=== PATIENT | female | born 1975 | race Caucasian/White ===

== ENCOUNTER 2017-08-26 07:16 | Inpatient (IN) ==
[2017-08-26] MEDS ORDERED: 0.9 % Sodium Chloride 1,000 ML IVC ONE (07:41)
[2017-08-26] MEDS ORDERED: Ondansetron 4 MG/2 ML VIAL IVP ONE (07:41)
[2017-08-26] MEDS ORDERED: *HR* Morphine 2 MG/ML SYRINGE IVP ONE (07:41)
--- NOTE | 2017-08-26 08:07 | Emergency Department Note ---
Disposition Clinical Impression: Diverticulitis Qualifiers: Diverticulitis site: large intestine Diverticulitis bleeding: without bleeding Diverticulitis complication: without perforation or abscess Qualified Code(s): K57.32 - Diverticulitis of large intestine without perforation or abscess without bleeding Disposition: Admitted As Inpatient Condition: Fair Referrals: Brittany Mendez CNP [Primary Care Provider] - Forms: ED Satisfaction Letter, Work/School Release Abdominal Pain HPI - General Chief Complaint: ED Abdominal Pain Stated Complaint: abd, N/V/D Time Seen by Provider: 08/26/17 07:24 Source: patient Mode of arrival: private vehicle Limitations: no limitations Nursing Notes Reviewed: Yes Vital Signs Reviewed: Yes - History of Present Illness Pt Subjective Complaint: abdominal pain Onset (ago): day(s) (3) Consistency: constant, Worsening Location: LLQ Pain Severity: moderate Pain Scale: 5 Quality: stabbing, sharp Radiation: none Migration to: no migration Improves with: nothing Worsens with: nothing Context: history of similar episodes ("feels like diverticulitis again" per patient) Associated symptoms: Reports: nausea, vomiting, chills. Denies: diarrhea, fever , constipation, dysuria, hematemesis, hematochezia, melena, hematuria, anorexia , syncope Treatments prior to arrival: other (has tried bland diet then liquid diet x past 2.5 days.) - Related Data Home Medications Medication Instructions Recorded Confirmed Ibuprofen [Motrin] 200 mg PO Q4HR 07/23/15 07/23/15 SUMAtriptan Succinate [Imitrex] 100 mg PO AD PRN 07/23/15 07/23/15 Previous Rx's Medication Instructions Recorded Ciprofloxacin [Cipro] 500 mg PO BID #20 tablet 07/30/15 Ondansetron ODT [Zofran ODT] 4 mg SL Q4HR PRN #30 tab.rapdis 07/30/15 TraMADol [Ultram] 50 mg PO Q6HR PRN #30 tablet 07/30/15 metroNIDAZOLE [Flagyl] 500 mg PO TID #30 tablet 07/30/15 Allergies Allergy/AdvReac Type Severity Reaction Status Date / Time sulfamethoxazole Allergy Hives Verified 08/26/17 07:47 [From Bactrim] trimethoprim [From Bactrim] Allergy Hives Verified 08/26/17 07:47 All systems ED: reviewed and negative except as stated. Review of Systems: As Per HPI Constitutional: Reports: chills. Denies: fever, weakness, weight change, night sweats Cardiovascular: Denies: chest pain, palpitations, dyspnea on exertion Respiratory: Denies: cough, dyspnea, wheezes, hemoptysis Gastrointestinal: Reports: as per HPI, abdominal pain, nausea, vomiting. Denies : diarrhea, constipation, hematemesis, melena, hematochezia, other Genitourinary: Denies: urgency, dysuria, frequency, hematuria Integumentary: Denies: rash Neurological: Denies: headache, weakness, confusion, vertigo Hematological/Lymphatic: Denies: easy bleeding, easy bruising Abdominal Pain PMH - Past Medical History Medical history: Reports: other Reports: diverticulosis, diverticulitis (Dx 2 yrs ago) Female Surgical History: Reports: LEASE EXAMINER history: Reports: no LEASE EXAMINER history Psychiatric history: Reports: no psych history - Social History Smoking status: Never smoker Alcohol use: Reports: rarely Drug use: Reports: none Physical Exam - General Limitations: no limitations General appearance: alert, in no apparent distress - Head Head exam: atraumatic, normocephalic, normal inspection - Eye Eye exam: Present: normal appearance, PERRL. Absent: scleral icterus, conjunctival injection, periorbital swelling - ENT ENT exam: mucous membranes dry - Neck Neck exam: Present: normal inspection, full ROM, trachea midline. Absent: meningismus - Chest Chest inspection: Present: normal inspection - Respiratory Respiratory exam: Present: normal lung sounds bilaterally. Absent: respiratory distress - Cardiovascular Cardiovascular exam: Present: regular rate, normal rhythm, normal heart sounds - Abdominal Exam Abdominal exam: Present: soft, tenderness, normal bowel sounds. Absent: distention, guarding, rebound, rigidity, mass, pulsatile mass Abdominal tenderness: Present: LLQ, moderate - Extremities Exam Extremities exam: Present: normal inspection. Absent: pedal edema - Expanded Lower Extremity Exam Gait: observed and normal - Back Exam Back exam: Present: normal inspection - Neurological Exam Neurological exam: Present: alert, oriented X3, CN II-XII intact, normal gait - Psychiatric Psychiatric exam: Present: normal affect, normal mood - Skin Skin exam: Present: warm, dry, intact, normal color Course Course Narrative: 42 yr old female presents for evaluation of LLQ abdominal pain x 3 days. She has hx of diverticulitis - dx'd [address] with F/U scope. She has had a couple episodes of similar pain which resolved when she switched to a liquid or bland diet. This time she has had no relief with such measures. She appears uncomfortable but not toxic. Vitals are normal. Labs, fluids, pain and nausea meds and CT have been ordered. Case was discussed with Dr. Hawkins. He has had face to face time with the patient and agrees with the assessment and plan. - Reevaluation(s) Reevaluation #1: pain and nausea have returned. Additional meds ordered. CT shows stranding in LLQ and WBC count is elevated. Abx ordered. Time: 09:36 Vital Signs Temperature 98.1 F 08/26/17 07:16 Pulse Rate 88 08/26/17 07:16 Respiratory Rate 18 08/26/17 07:16 Blood Pressure 133/89 08/26/17 07:16 O2 Sat by Pulse Oximetry 98 08/26/17 07:16 Temperature 98.1 F 08/26/17 07:16 Pulse Rate 82 08/26/17 09:19 Respiratory Rate 20 08/26/17 09:19 Blood Pressure 133/77 08/26/17 09:19 O2 Sat by Pulse Oximetry 97 08/26/17 09:19 Oxygen Delivery Oxygen Delivery Room Air Abdominal Pain - Medical Records Medical records reviewed: Yes I reviewed the patient's medical records. - Lab Data Lab results reviewed: Yes I reviewed the patient's lab results. Lab results narrative: Laboratory Last Values WBC 15.6 K/mcL (4.3-11.1) H 08/26/17 07:46 RBC 4.65 M/mcL (3.82-4.97) 08/26/17 07:46 Hgb 14.1 g/dL (11.5-15.4) 08/26/17 07:46 Hct 41.4 % (35.3-44.9) 08/26/17 07:46 MCV 89.0 fL (83.0-100.0) 08/26/17 07:46 MCH 30.3 pg (28.0-33.3) 08/26/17 07:46 MCHC 34.1 g/dL (31.6-35.5) 08/26/17 07:46 RDW 12.4 % (11.5-14.5) 08/26/17 07:46 Plt Count 285 K/mcL (140-400) 08/26/17 07:46 MPV 10.3 fL (9.4-12.4) 08/26/17 07:46 Immature Gran % 0.3 % (0-4) 08/26/17 07:46 Seg Neutrophils % 80.0 % 08/26/17 07:46 Lymphocytes % 12.5 % 08/26/17 07:46 Monocytes % 6.5 % 08/26/17 07:46 Eosinophils % 0.3 % 08/26/17 07:46 Basophils % 0.4 % 08/26/17 07:46 Neutrophils # 12.4 K/mcL (1.6-8.9) H 08/26/17 07:46 Lymphocytes # 2.0 K/mcL (0.6-4.6) 08/26/17 07:46 Monocytes # 1.0 K/mcL (0.0-1.3) 08/26/17 07:46 Eosinophils # 0.0 K/mcL (0.0-0.6) 08/26/17 07:46 Basophils # 0.1 K/mcL (0.0-0.2) 08/26/17 07:46 Sodium 133 mEq/L (136-145) L 08/26/17 07:46 Potassium 4.2 mEq/L (3.5-4.5) 08/26/17 07:46 Chloride 103 mEq/L (98-109) 08/26/17 07:46 Carbon Dioxide 24 mEq/L (19-29) 08/26/17 07:46 BUN 10 mg/dL (7-20) 08/26/17 07:46 Creatinine 1.00 mg/dL (0.57-1.11) 08/26/17 07:46 Est GFR ( Amer) > 60 (> 60) 08/26/17 07:46 Est GFR (Non-Af Amer) > 60 (> 60) 08/26/17 07:46 BUN/Creatinine Ratio 10 (6-26) 08/26/17 07:46 Glucose 115 mg/dL (70-99) H 08/26/17 07:46 Calculated Osmolality 276 (280-300) L 08/26/17 07:46 Calcium 9.2 mg/dL (8.6-10.8) 08/26/17 07:46 Urine Color Yellow (Yellow) 08/26/17 07:24 Urine Clarity Clear (Clear) 08/26/17 07:24 Urine pH 6.0 pH Units (5.0-8.0) 08/26/17 07:24 Ur Specific [place] 1.021 (1.010-1.025) 08/26/17 07:24 Urine Protein Negative mg/dL (Neg-Trace) 08/26/17 07:24 Urine Glucose (UA) Normal mg/dL (Normal) 08/26/17 07:24 Urine Ketones Negative mg/dL (Negative) 08/26/17 07:24 Urine Blood Negative (Negative) 08/26/17 07:24 Urine Nitrite Negative (Negative) 08/26/17 07:24 Urine Bilirubin Negative (Negative) 08/26/17 07:24 Urine Urobilinogen Normal mg/dL (Normal) 08/26/17 07:24 Ur Leukocyte Esterase Negative (Negative) 08/26/17 07:24 Ur Culture Indicated? NO (NO) 08/26/17 07:24 Urine Test Negative (Negative) 08/26/17 07:24 Result diagrams: 08/26/17 07:46 08/26/17 07:46 Lab Results 08/26/17 08/26/17 08/26/17 Range/Units 07:24 07:24 07:46 WBC 15.6 H (4.3-11.1) K/mcL RBC 4.65 (3.82-4.97) M/mcL Hgb 14.1 (11.5-15.4) g/dL Hct 41.4 (35.3-44.9) % MCV 89.0 (83.0-100.0) fL MCH 30.3 (28.0-33.3) pg MCHC 34.1 (31.6-35.5) g/dL RDW 12.4 (11.5-14.5) % Plt Count 285 (140-400) K/mcL MPV 10.3 (9.4-12.4) fL Immature Gran % 0.3 (0-4) % Seg Neutrophils % 80.0 % Lymphocytes % 12.5 % Monocytes % 6.5 % Eosinophils % 0.3 % Basophils % 0.4 % Neutrophils # 12.4 H (1.6-8.9) K/mcL Lymphocytes # 2.0 (0.6-4.6) K/mcL Monocytes # 1.0 (0.0-1.3) K/mcL Eosinophils # 0.0 (0.0-0.6) K/mcL Basophils # 0.1 (0.0-0.2) K/mcL Sodium (136-145) mEq/L Potassium (3.5-4.5) mEq/L Chloride (98-109) mEq/L Carbon Dioxide (19-29) mEq/L BUN (7-20) mg/dL Creatinine (0.57-1.11) mg/dL Est GFR ( Amer) (> 60) Est GFR (Non-Af Amer) (> 60) BUN/Creatinine Ratio (6-26) Glucose (70-99) mg/dL Calculated Osmolality (280-300) Calcium (8.6-10.8) mg/dL Urine Color Yellow (Yellow) Urine Clarity Clear (Clear) Urine pH 6.0 (5.0-8.0) pH Units Ur Specific [place] 1.021 (1.010-1.025) Urine Protein Negative (Neg-Trace) mg/dL Urine Glucose (UA) Normal (Normal) mg/dL Urine Ketones Negative (Negative) mg/dL Urine Blood Negative (Negative) Urine Nitrite Negative (Negative) Urine Bilirubin Negative (Negative) Urine Urobilinogen Normal (Normal) mg/dL Ur Leukocyte Esterase Negative (Negative) Ur Culture Indicated? NO (NO) Urine Test Negative (Negative) 08/26/17 Range/Units 07:46 WBC (4.3-11.1) K/mcL RBC (3.82-4.97) M/mcL Hgb (11.5-15.4) g/dL Hct (35.3-44.9) % MCV (83.0-100.0) fL MCH (28.0-33.3) pg MCHC (31.6-35.5) g/dL RDW (11.5-14.5) % Plt Count (140-400) K/mcL MPV (9.4-12.4) fL Immature Gran % (0-4) % Seg Neutrophils % % Lymphocytes % % Monocytes % % Eosinophils % % Basophils % % Neutrophils # (1.6-8.9) K/mcL Lymphocytes # (0.6-4.6) K/mcL Monocytes # (0.0-1.3) K/mcL Eosinophils # (0.0-0.6) K/mcL Basophils # (0.0-0.2) K/mcL Sodium 133 L (136-145) mEq/L Potassium 4.2 (3.5-4.5) mEq/L Chloride 103 (98-109) mEq/L Carbon Dioxide 24 (19-29) mEq/L BUN 10 (7-20) mg/dL Creatinine 1.00 (0.57-1.11) mg/dL Est GFR ( Amer) > 60 (> 60) Est GFR (Non-Af Amer) > 60 (> 60) BUN/Creatinine Ratio 10 (6-26) Glucose 115 H (70-99) mg/dL Calculated Osmolality 276 L (280-300) Calcium 9.2 (8.6-10.8) mg/dL Urine Color (Yellow) Urine Clarity (Clear) Urine pH (5.0-8.0) pH Units Ur Specific [place] (1.010-1.025) Urine Protein (Neg-Trace) mg/dL Urine Glucose (UA) (Normal) mg/dL Urine Ketones (Negative) mg/dL Urine Blood (Negative) Urine Nitrite (Negative) Urine Bilirubin (Negative) Urine Urobilinogen (Normal) mg/dL Ur Leukocyte Esterase (Negative) Ur Culture Indicated? (NO) Urine Test (Negative) - Radiology Data Radiology results reviewed: Yes I reviewed the patient's radiology results. Abdomen/Pelvis CT 08/26/17 08:12 IMPRESSION: Moderate to large amount of inflammatory change associated with uncomplicated sigmoid diverticulitis. D/ / Harman Grace MD / Harman Grace MD Interpreting Provider: Harman Grace MD
[2017-08-26 08:17] LABS: Bilirubin,Urine Negative (Negative); Blood,Urine Negative (Negative); Clarity,Urine Clear (Clear); Color,Urine Yellow (Yellow); Glucose,Urine (UA) Normal (Normal); Ketones,Urine Negative (Negative); Leukocyte Esterase,Urine Negative (Negative); Nitrite,Urine Negative (Negative); Protein,Urine Negative (Neg-Trace); Specific Gravity,Urine 1.021 (1.010-1.025); Urobilinogen,Urine Normal (Normal)
[2017-08-26 08:17] LABS: Basophils # 0.1 K/mcL (0.0-0.2); Basophils % 0.4 %; Eosinophils % 0.3 %; Hematocrit 41.4 % (35.3-44.9); Hemoglobin 14.1 g/dL (11.5-15.4); Immature Granulocytes % 0.3 % (0-4); Lymphocytes % 12.5 %; Mean Corpuscular HGB Conc 34.1 g/dL (31.6-35.5); Mean Corpuscular Hemoglobin 30.3 pg (28.0-33.3); Mean Platelet Volume 10.3 fL (9.4-12.4); Monocytes % 6.5 %; Neutrophils # 12.4 K/mcL (1.6-8.9); Platelet Count 285 K/mcL (140-400); Red Blood Count 4.65 M/mcL (3.82-4.97); Red Cell Distribution Width 12.4 % (11.5-14.5)
[2017-08-26 08:25] LABS: BUN/Creatinine Ratio 10 (6-26); Blood Urea Nitrogen 10 mg/dL (7-20); Calcium 9.2 mg/dL (8.6-10.8); Carbon Dioxide 24 mEq/L (19-29); Chloride 103 mEq/L (98-109); Glucose 115 mg/dL (70-99); Osmolality,Calculated 276 (280-300); Potassium 4.2 mEq/L (3.5-4.5); Sodium 133 mEq/L (136-145); eGFR For African Americans > 60 (> 60); eGFR For Non-African Americans > 60 (> 60)
[2017-08-26] MEDS ORDERED: MetroNIDAZOLE 500 MG/100 ML 500 MG/100 ML BAG IVPB ONE (09:30)
[2017-08-26] MEDS ORDERED: Promethazine 25 MG in 0.9 % Sodium Chloride 50 ML IVPB ONE (09:36)
[2017-08-26] MEDS ORDERED: *HR* HYDROmorphone (PF) 1 MG/ML SYRINGE IVP ONE (09:36)
[2017-08-26] MEDS ORDERED: SUMAtriptan succinate 50 MG TABLET PO PRN (11:55)
[2017-08-26] MEDS ORDERED: Naloxone 0.4 MG/ML INJ IVP PRN (11:56)
[2017-08-26] MEDS ORDERED: Acetaminophen 325 MG TABLET PO PRN (11:56)
--- NOTE | 2017-08-26 12:00 | Internal Med History&Physical ---
Date of Encounter: 08/26/17 Time of Encounter: 11:59 Assessment and Plan (1) Morbid obesity with BMI of 40.0-44.9, adult Current visit: Yes Status: Acute I recommend outpatient weight loss regimen and lifestyle modification. (2) Sepsis Current visit: No Status: Resolved Mild tachycardia and 91, afebrile but white blood cell count elevated at 15,000 , with suspected infectious versus diverticulitis supports a diagnosis of sepsis. Blood cultures have been drawn. Lactic acid will be obtained stat. She received IV fluids. I will follow blood cultures. We will treat her with Cipro and Flagyl IV. Qualifiers: Sepsis type: sepsis due to unspecified organism Qualified Code(s): A41.9 - Sepsis, unspecified organism (3) Acute diverticulitis Current visit: No Status: Acute Levaquin and Flagyl. (4) DVT prophylaxis Current visit: No Status: Acute DVT prophylaxis with Lovenox. She is at moderate risk for DVT due to active infection, impaired mobility secondary to severe abdominal pain. (5) Abdominal pain Current visit: No Status: Resolved We will treat this with oxycodone and IV morphine. Qualifiers: Abdominal location: left lower quadrant Qualified Code(s): R10.32 - Left lower quadrant pain Internal Medicine - H&P: HPI Chief complaint: Abdominal pain Admitted From: Emergency Dept Plans for Post Hospital Care: Home History of present illness: Ms. Hay is a 42 year old female with past medical history significant for complicated diverticulitis 2 years ago who presented to the hospital for evaluation of abdominal pain. She reports left lower quadrant severe, crampy abdominal pain started 2 days ago, better with lying down in a crouched position on the left side, worse with standing up. Denies associated fever. Denies changes in bowel habits. Denies rectal bleeding. Had nausea and one episode of vomiting this morning. A 10 point review of systems was otherwise negative. Family history negative for premature coronary artery disease in both parents and siblings, negative for colon cancer in first-degree family members. Social history: Denies tobacco alcohol and drug use. 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 Past Med Surg Social Fam HX - Past Medical History Medical history: other Psychiatric history: no psych history - Past Surgical History Surgical History: - Social History Smoking Status: Never smoker Alcohol use: rarely Drug use: none - Family History Father Living Status: Still Living Hx Family GI Disorders: Yes (father has a hx of diverticulosis) Internal Medicine - H&P: Meds SUMAtriptan Succinate [Imitrex] 100 mg PO AD PRN 07/23/15 [History] 3 Allergy/AdvReac Type Severity Reaction Status Date / Time sulfamethoxazole Allergy Hives Verified 08/26/17 07:47 [From Bactrim] trimethoprim [From Bactrim] Allergy Hives Verified 08/26/17 07:47 All Systems PM: A 10-system review of systems was performed and is negative for pertinent findings except as documented above in the HPI. - Constitutional Vitals: Temp Pulse Resp BP Pulse Ox 98.1 F 67 20 106/60 95 08/26/17 07:16 08/26/17 11:05 08/26/17 11:55 08/26/17 11:55 08/26/17 11:05 Internal Med - H&P Results - Labs CBC & Chem 7: 08/26/17 07:46 08/26/17 07:46
[2017-08-26] MEDS: *HR* Morphine 2 MG/ML SYRINGE IVP PRN ×3 (13:40→23:57)
[2017-08-26] MEDS: MetroNIDAZOLE 500 MG/100 ML 500 MG/100 ML BAG IVPB SCH ×2 (15:50→23:12)
[2017-08-26] MEDS ORDERED: Ondansetron 4 MG/2 ML VIAL IVP SCH (20:00)
[2017-08-27 04:18] LABS: Basophils # 0.1 K/mcL (0.0-0.2); Basophils % 0.3 %; Eosinophils # 0.1 K/mcL (0.0-0.6); Eosinophils % 0.5 %; Hematocrit 38.2 % (35.3-44.9); Hemoglobin 12.9 g/dL (11.5-15.4); Immature Granulocytes % 0.3 % (0-4); Lymphocytes # 2.3 K/mcL (0.6-4.6); Lymphocytes % 15.7 %; Mean Corpuscular HGB Conc 33.8 g/dL (31.6-35.5); Mean Corpuscular Volume 91.8 fL (83.0-100.0); Mean Platelet Volume 10.3 fL (9.4-12.4); Monocytes % 6.6 %; Neutrophils # 11.1 K/mcL (1.6-8.9); Platelet Count 255 K/mcL (140-400); Red Blood Count 4.16 M/mcL (3.82-4.97); Red Cell Distribution Width 12.6 % (11.5-14.5); Segmented Neutrophils % 76.6 %
[2017-08-27 04:34] LABS: BUN/Creatinine Ratio 8 (6-26); Blood Urea Nitrogen 8 mg/dL (7-20); Carbon Dioxide 28 mEq/L (19-29); Chloride 103 mEq/L (98-109); Glucose 99 mg/dL (70-99); Magnesium 1.8 mg/dL (1.6-2.6); Osmolality,Calculated 282 (280-300); Potassium 4.2 mEq/L (3.5-4.5); Sodium 137 mEq/L (136-145); eGFR For African Americans > 60 (> 60); eGFR For Non-African Americans 59 (> 60)
[2017-08-27] MEDS: *HR* Morphine 2 MG/ML SYRINGE IVP PRN (06:35)
[2017-08-27] MEDS: *HR* OxyCODONE Immed Rel 5 MG TABLET PO PRN ×3 (08:43→21:21)
[2017-08-27] MEDS: Ondansetron 4 MG/2 ML VIAL IVP PRN (08:43)
[2017-08-27] MEDS: MetroNIDAZOLE 500 MG/100 ML 500 MG/100 ML BAG IVPB SCH ×2 (08:43→15:30)
--- NOTE | 2017-08-27 18:20 | Internal Med Progress Note ---
Date of Encounter: 08/27/17 Time of Encounter: 18:17 - Assessment and plan (1) Diverticulitis Current Visit: Yes Status: Acute Assessment and plan: Admitted with sigmoid diverticulitis. CT scan of the abdomen confirmed above findings. Still has occasional abdominal pain. Pain is much better as compared to yesterday: As per patient. Ciprofloxacin: Day 2 Metronidazole :Day 2 Patient is on appropriate pain medication Plan: Will continue present treatment. If patient's pain worsens or any worsening abdominal tenderness then we will repeat CT scan. Qualifiers: Diverticulitis site: large intestine Diverticulitis bleeding: without bleeding Diverticulitis complication: without perforation or abscess Qualified Code(s): K57.32 - Diverticulitis of large intestine without perforation or abscess without bleeding (2) Sepsis Current Visit: No Status: Acute Assessment and plan: See above Qualifiers: Sepsis type: sepsis due to unspecified organism Qualified Code(s): A41.9 - Sepsis, unspecified organism (3) Migraine Current Visit: No Status: Chronic Assessment and plan: Stable migraine. We will continue prophylactic medication. Qualifiers: Migraine type: unspecified Status migrainosus presence: without status migrainosus Intractability: not intractable Qualified Code(s): G43.909 - Migraine, unspecified, not intractable, without status migrainosus (4) DVT prophylaxis Current Visit: No Status: Acute Assessment and plan: SCD Medical decision making: This patient is a moderate to severe risk of worsening in spite of being on appropriate medication to the underlying complex comorbid conditions - Subjective Interval history: Patient seen and examined. Chart reviewed. Patient was complaining of occasional abdominal pain. Patient claims that her pain is much better as compared to yesterday. Patient denies chest pain, shortness of breath, nausea, vomiting, diarrhea or dizziness - Constitutional Vitals: Temp Pulse Resp BP Pulse Ox 98.3 F 86 14 116/77 95 08/27/17 14:17 08/27/17 14:17 08/27/17 14:17 08/27/17 14:17 08/27/17 14:17 General appearance: Present: A&O X 3, morbidly obese, pleasant, answers questions appropriately - Head Head exam: Present: atraumatic, normocephalic - Eye Eye exam: Present: PERRL, conjuntiva pink, sclera anicteric Pupils: Present: PERRL - Neck Neck exam general surgery: Present: supple, trachea midline. Absent: lymphadenopathy - Respiratory Respiratory exam: Present: CTAB. Absent: accessory muscle use, rales, rhonchi, wheezes - Cardiovascular Cardiovascular exam: Present: RRR, +S1, +S2. Absent: diastolic murmur, gallop, rubs, systolic murmur - GI/Abdominal GI/Abdominal exam: Present: normal bowel sounds, soft, no peritoneal signs. Absent: distended, tenderness - Extremities Exam Extremities exam: Present: warm, radial pulses palpable and symmetrical. Absent : calf tenderness, cyanotic, pedal edema - Neurological Exam Neurological exam: Present: CN II-XII intact, oriented X3, no focal deficits. Absent: pronater drift, facial droop, speech deficit - Skin Skin exam: Present: dry, intact Internal Medicine: Result - Labs CBC & Chem 7: 08/27/17 03:50 08/27/17 03:50 Labs: Short CBC 08/27/17 Range/Units 03:50 WBC 14.5 H (4.3-11.1) K/mcL Hgb 12.9 (11.5-15.4) g/dL Hct 38.2 (35.3-44.9) % Plt Count 255 (140-400) K/mcL Neutrophils # 11.1 H (1.6-8.9) K/mcL BMP 08/27/17 03:50 Sodium 137 Potassium 4.2 Chloride 103 Carbon Dioxide 28 BUN 8 Creatinine 1.03 Glucose 99 Calcium 9.0 Consult Discharge Plan - Plan Referrals: Brittany Mendez [employer] OPEN STACK ADMINISTRATOR [Primary Care Provider] -
[2017-08-28] MEDS: MetroNIDAZOLE 500 MG/100 ML 500 MG/100 ML BAG IVPB SCH ×4 (00:41→23:54)
[2017-08-28] MEDS: Ondansetron 4 MG/2 ML VIAL IVP PRN (06:46)
[2017-08-28 08:07] LABS: Basophils # 0.1 K/mcL (0.0-0.2); Basophils % 0.4 %; Eosinophils # 0.1 K/mcL (0.0-0.6); Eosinophils % 0.9 %; Hematocrit 37.6 % (35.3-44.9); Hemoglobin 12.5 g/dL (11.5-15.4); Immature Granulocytes % 0.4 % (0-4); Lymphocytes # 2.4 K/mcL (0.6-4.6); Lymphocytes % 18.3 %; Mean Corpuscular HGB Conc 33.2 g/dL (31.6-35.5); Mean Corpuscular Hemoglobin 30.3 pg (28.0-33.3); Mean Corpuscular Volume 91.3 fL (83.0-100.0); Mean Platelet Volume 10.5 fL (9.4-12.4); Monocytes % 7.8 %; Neutrophils # 9.5 K/mcL (1.6-8.9); Platelet Count 268 K/mcL (140-400); Red Blood Count 4.12 M/mcL (3.82-4.97); Red Cell Distribution Width 12.7 % (11.5-14.5); Segmented Neutrophils % 72.2 %
[2017-08-28 08:27] LABS: Alanine Aminotransferase 13 Units/L (0-55); Albumin/Globulin Ratio 0.8 (1.1-2.2); Alkaline Phosphatase 87 Units/L (38-126); Aspartate Amino Transferase 11 Units/L (5-34); BUN/Creatinine Ratio 9 (6-26); Bilirubin,Total 0.7 mg/dL (0.2-1.2); Blood Urea Nitrogen 9 mg/dL (7-20); Calcium 9.1 mg/dL (8.6-10.8); Carbon Dioxide 27 mEq/L (19-29); Chloride 101 mEq/L (98-109); Glucose 95 mg/dL (70-99); Osmolality,Calculated 278 (280-300); Sodium 135 mEq/L (136-145); eGFR For African Americans > 60 (> 60); eGFR For Non-African Americans > 60 (> 60)
--- NOTE | 2017-08-28 14:06 | Internal Med Progress Note ---
Date of Encounter: 08/28/17 Time of Encounter: 14:03 - Assessment and plan (1) Diverticulitis Current Visit: Yes Status: Acute Assessment and plan: Admitted with sigmoid diverticulitis. CT scan of the abdomen confirmed above findings. Still has occasional abdominal pain. Pain is much better as compared to yesterday: As per patient. Ciprofloxacin: Day 2 Metronidazole :Day 2 Patient is on appropriate pain medication Plan: Will continue present treatment. If patient's pain worsens or any worsening abdominal tenderness then we will repeat CT scan. 08/28/2017 Admit admitted with sigmoid diverticulitis. Clinical findings correlate with the radiological imaging. Patient's abdominal pain is much better as compared to yesterday. Presently on ciprofloxacin: Day 3 Flagyl: Day 3 We will continue present antibiotics for now. Possible home tomorrow. Patient needs outpatient GI/surgery follow-up as she has a recurrent sigmoid diverticulitis. Qualifiers: Diverticulitis site: large intestine Diverticulitis bleeding: without bleeding Diverticulitis complication: without perforation or abscess Qualified Code(s): K57.32 - Diverticulitis of large intestine without perforation or abscess without bleeding (2) Sepsis Current Visit: No Status: Acute Assessment and plan: See above Qualifiers: Sepsis type: sepsis due to unspecified organism Qualified Code(s): A41.9 - Sepsis, unspecified organism (3) Migraine Current Visit: No Status: Chronic Assessment and plan: Stable migraine. We will continue prophylactic medication. Qualifiers: Migraine type: unspecified Status migrainosus presence: without status migrainosus Intractability: not intractable Qualified Code(s): G43.909 - Migraine, unspecified, not intractable, without status migrainosus (4) DVT prophylaxis Current Visit: No Status: Acute Assessment and plan: SCD Medical decision making: This patient is a moderate to severe risk of worsening in spite of being on appropriate medication to the underlying complex comorbid conditions - Subjective Interval history: Patient seen and examined. Chart reviewed. Patient was complaining of occasional abdominal pain. Patient claims that her pain is much better as compared to yesterday. Patient denies chest pain, shortness of breath, nausea, vomiting, diarrhea or dizziness 08/28/2017 Patient seen and examined. Chart reviewed. Patient is complaining of very mild abdominal pain only upon palpation of the left lower quadrant. Otherwise patient denies any pain. Patient claims that she feels much better as compared to yesterday. - Constitutional Vitals: Temp Pulse Resp BP Pulse Ox 98.1 F 73 14 121/81 98 08/28/17 10:18 08/28/17 10:18 08/28/17 10:18 08/28/17 10:18 08/28/17 10:18 General appearance: Present: A&O X 3, morbidly obese, pleasant, answers questions appropriately - Head Head exam: Present: atraumatic, normocephalic - Eye Eye exam: Present: PERRL, conjuntiva pink, sclera anicteric Pupils: Present: PERRL - Neck Neck exam general surgery: Present: supple, trachea midline. Absent: lymphadenopathy - Respiratory Respiratory exam: Present: CTAB. Absent: accessory muscle use, rales, rhonchi, wheezes - Cardiovascular Cardiovascular exam: Present: RRR, +S1, +S2. Absent: diastolic murmur, gallop, rubs, systolic murmur - GI/Abdominal GI/Abdominal exam: Present: normal bowel sounds, soft, no peritoneal signs. Absent: distended, tenderness - Extremities Exam Extremities exam: Present: warm, radial pulses palpable and symmetrical. Absent : calf tenderness, cyanotic, pedal edema - Neurological Exam Neurological exam: Present: CN II-XII intact, oriented X3, no focal deficits. Absent: pronater drift, facial droop, speech deficit - Skin Skin exam: Present: dry, intact Internal Medicine: Result - Labs CBC & Chem 7: 08/28/17 07:04 08/28/17 07:04 Labs: Short CBC 08/28/17 Range/Units 07:04 WBC 13.1 H (4.3-11.1) K/mcL Hgb 12.5 (11.5-15.4) g/dL Hct 37.6 (35.3-44.9) % Plt Count 268 (140-400) K/mcL Neutrophils # 9.5 H (1.6-8.9) K/mcL BMP 08/28/17 07:04 Sodium 135 L Potassium 4.0 Chloride 101 Carbon Dioxide 27 BUN 9 Creatinine 0.99 Glucose 95 Calcium 9.1 Liver Function 08/28/17 Range/Units 07:04 Total Bilirubin 0.7 (0.2-1.2) mg/dL AST 11 (5-34) Units/L ALT 13 (0-55) Units/L Alkaline Phosphatase 87 (38-126) Units/L Albumin 3.0 L (3.5-5.0) g/dL Consult Discharge Plan - Plan Referrals: Brittany Mendez, GEOGRAPHIC INFORMATION SYSTEM SURVEYOR [Primary Care Provider] -
[2017-08-28] MEDS: *HR* OxyCODONE Immed Rel 5 MG TABLET PO PRN (23:55)
[2017-08-29 04:26] LABS: Hematocrit 39.8 % (35.3-44.9); Hemoglobin 13.2 g/dL (11.5-15.4); Mean Corpuscular HGB Conc 33.2 g/dL (31.6-35.5); Mean Corpuscular Hemoglobin 30.1 pg (28.0-33.3); Mean Corpuscular Volume 90.7 fL (83.0-100.0); Mean Platelet Volume 10.3 fL (9.4-12.4); Platelet Count 298 K/mcL (140-400); Red Blood Count 4.39 M/mcL (3.82-4.97); Red Cell Distribution Width 12.5 % (11.5-14.5); Segmented Neutrophils % 71.3 %
[2017-08-29 04:27] LABS: Basophils # 0.1 K/mcL (0.0-0.2); Basophils % 0.5 %; Eosinophils # 0.1 K/mcL (0.0-0.6); Eosinophils % 1.1 %; Immature Granulocytes % 0.3 % (0-4); Lymphocytes # 2.2 K/mcL (0.6-4.6); Lymphocytes % 20.5 %; Monocytes # 0.7 K/mcL (0.0-1.3); Monocytes % 6.3 %; Neutrophils # 7.6 K/mcL (1.6-8.9)
[2017-08-29 04:44] LABS: Alanine Aminotransferase 13 Units/L (0-55); Albumin/Globulin Ratio 0.7 (1.1-2.2); Alkaline Phosphatase 89 Units/L (38-126); Aspartate Amino Transferase 14 Units/L (5-34); BUN/Creatinine Ratio 11 (6-26); Bilirubin,Total 0.6 mg/dL (0.2-1.2); Blood Urea Nitrogen 10 mg/dL (7-20); Calcium 9.4 mg/dL (8.6-10.8); Carbon Dioxide 25 mEq/L (19-29); Chloride 102 mEq/L (98-109); Globulin 4.3 g/dL (2.4-3.5); Glucose 97 mg/dL (70-99); Osmolality,Calculated 281 (280-300); Potassium 4.1 mEq/L (3.5-4.5); Sodium 136 mEq/L (136-145); Total Protein 7.3 g/dL (6.0-8.3); eGFR For African Americans > 60 (> 60); eGFR For Non-African Americans > 60 (> 60)
[2017-08-29 04:47] VITALS: BP 138/86
--- NOTE | 2017-08-29 08:52 | Discharge Summary ---
<Enrique,Sandeep Kennedy - Last Filed: 08/29/17 14:07> Date of Encounter: 08/29/17 Time of Encounter: 08:44 - Discharge Diagnosis (1) Diverticulitis Priority: Primary Status: Acute Qualifiers: Diverticulitis site: large intestine Diverticulitis bleeding: without bleeding Diverticulitis complication: without perforation or abscess Qualified Code(s): K57.32 - Diverticulitis of large intestine without perforation or abscess without bleeding (2) Sepsis Priority: Secondary Status: Acute Qualifiers: Sepsis type: sepsis due to unspecified organism Qualified Code(s): A41.9 - Sepsis, unspecified organism (3) Migraine Priority: Secondary Status: Chronic Qualifiers: Migraine type: unspecified Status migrainosus presence: without status migrainosus Intractability: not intractable Qualified Code(s): G43.909 - Migraine, unspecified, not intractable, without status migrainosus (4) DVT prophylaxis Priority: Secondary Status: Acute - Discharge Medications Prescriptions: Ondansetron [Zofran] 4 mg PO Q8HR PRN #20 tablet PRN Reason: Nausea Ciprofloxacin HCl [Cipro] 500 mg PO BID #13 tablet metroNIDAZOLE [Metronidazole] 500 mg PO TID #19 tablet Home Medications: SUMAtriptan Succinate [Imitrex] 100 mg PO AD PRN 07/23/15 [History] Ciprofloxacin HCl [Cipro] 500 mg PO BID #13 tablet 08/29/17 [Rx] Ondansetron [Zofran] 4 mg PO Q8HR PRN #20 tablet 08/29/17 [Rx] metroNIDAZOLE [Metronidazole] 500 mg PO TID #19 tablet 08/29/17 [Rx] Allergies/Adverse Reactions: 3 Allergy/AdvReac Type Severity Reaction Status Date / Time sulfamethoxazole Allergy Hives Verified 08/26/17 07:47 [From Bactrim] trimethoprim [From Bactrim] Allergy Hives Verified 08/26/17 07:47 Date of admission: 08/27/17 18:15 Primary care physician: Brittany Mendez CNP Consults: Gi Discharging clinician: Sandeep Nunez Anticipated date of discharge: 08/29/17 - Patient Status Disposition: Home, Self-Care Condition: Fair Functional capacity at discharge: independent ambulation Overall status at discharge: patient is progressing back to baseline - Discharge Instructions Instructions: Diverticulitis (DC) Follow Up With: Brittany Mendez CNP [Primary Care Provider] - 09/01/17 2:00 pm Marya Ruiz MD [Partnered Physician] - (Web Request Entered. Thank you) - Diet and Activity Activity: increase activity as tolerated Diet: advance to your usual diet, other (high fiber diet) Interval History: 42-year-old female presents with chief complaint of left lower quadrant severe cramping abdominal pain that started 2 days before admission. Patient underwent CT of the abdomen which showed moderate to large amount of inflammatory changes associated with uncomplicated sigmoid diverticulitis. Patient had elevated white blood cell count on presentation. Patient was made nothing by mouth, started on ciprofloxacin and Flagyl. Patient's abdominal pain and nausea improved over the next 24 hours. Leukocytosis resolved She was started on a clear liquid diet and diet was advanced as tolerated. Patient is able to ambulate without assistance and tolerating her diet. Patient was evaluated by gastroenterology this morning we will follow up in 8 weeks for colonoscopy. GI office was consulted and patient now has outpatient appointment for followup. Plan: Continue cefoxitin and Flagyl for total 10 days of antibiotics. Follow up with GI outpatient. Start a high-fiber diet. Follow up with PCP. - Time Spent with Patient Total time spent providing and/or coordinating discharge services: - Constitutional Vitals: Temp Pulse Resp BP Pulse Ox 98.4 F 81 16 138/86 98 08/29/17 04:46 08/29/17 04:46 08/29/17 04:46 08/29/17 04:46 08/29/17 04:46 General appearance: Present: A&O X 3, morbidly obese, pleasant, answers questions appropriately - Head Head exam: Present: atraumatic, normocephalic - Eye Eye exam: Present: PERRL, conjuntiva pink, sclera anicteric - Neck Neck exam general surgery: Present: supple, trachea midline. Absent: lymphadenopathy - Respiratory Respiratory exam: Present: CTAB. Absent: accessory muscle use, rales, rhonchi, wheezes - Cardiovascular Cardiovascular exam: Present: RRR, +S1, +S2. Absent: diastolic murmur, gallop, rubs, systolic murmur - GI/Abdominal GI/Abdominal exam: Present: normal bowel sounds, soft, no peritoneal signs. Absent: distended, tenderness - Extremities Exam Extremities exam: Present: warm, radial pulses palpable and symmetrical. Absent : calf tenderness, cyanotic, pedal edema - Neurological Exam Neurological exam: Present: alert, oriented X3. Absent: facial droop, speech deficit - Skin Skin exam: Present: dry, intact <Mayi,Franky P - Last Filed: 08/29/17 21:02> Date of Encounter: 08/29/17 - Discharge Diagnosis (1) Diverticulitis Status: Acute Qualifiers: Diverticulitis site: large intestine Diverticulitis bleeding: without bleeding Diverticulitis complication: without perforation or abscess Qualified Code(s): K57.32 - Diverticulitis of large intestine without perforation or abscess without bleeding (2) Sepsis Status: Acute Qualifiers: Sepsis type: sepsis due to unspecified organism Qualified Code(s): A41.9 - Sepsis, unspecified organism (3) Migraine Status: Chronic Qualifiers: Migraine type: unspecified Status migrainosus presence: without status migrainosus Intractability: not intractable Qualified Code(s): G43.909 - Migraine, unspecified, not intractable, without status migrainosus (4) DVT prophylaxis Status: Acute Date of admission: 08/27/17 18:15 Primary care physician: Brittany Mendez CNP Consults: 08/29/17 08:48 Consult to Gastroenterology [CONS] Routine Consulting Provider: Gastroenterology So Reason for Consult: recurrent diverticulitis Call Completed: Yes Hospital course: Ms. Hay is a 42 year old female - Time Spent with Patient Total time spent providing and/or coordinating discharge services: - Constitutional Vitals: Temp Pulse Resp BP Pulse Ox 98.4 F 81 16 138/86 98 08/29/17 04:46 08/29/17 04:46 08/29/17 04:46 08/29/17 04:46 08/29/17 04:46 - Attending Attestation I examined this patient and my medical decision-making was reviewed with the Resident Physician. I agree with the documented findings, disposition and treatment plan as described except to the extent set forth below.
[2017-08-29] MEDS: MetroNIDAZOLE 500 MG/100 ML 500 MG/100 ML BAG IVPB SCH (09:05)
--- NOTE | 2017-08-29 11:39 | Gastroenterology Consult Note ---
Date of Encounter: 08/29/17 Time of Encounter: 09:15 - Assessment and plan (1) Acute diverticulitis Status: Acute Assessment and plan: This is a 42 year old female who presents with acute diverticulitis. She has improved abdominal pain. She is tolerating diet. WBC has normalized. Recommend outpatient colonoscopy in 8 weeks. This is the second episode of sigmoid diverticulitis in the past 2 years and sigmoid resection may be considered. - Time Spent With Patient Total time spent is greater than 50% in coordination of care (as documented) at patient's floor/unit and/or counseling patient: GI History of Present Illness - Data of Consult Patient: new to practice Consult date: 08/29/17 Requesting Physician: Di Espino MD - Consult Narrative Reason for consult: abdominal pain History of present illness: Ms. Hay is a 42 year old female who presented with abdominal pain. She has a history of diverticulitis 2 years ago requiring hospitalization. She reports left lower quadrant severe, crampy abdominal pain started 2 days ago, better with lying down in a crouched position on the left side, worse with standing up. She also complains of nausea and one episode of vomiting. She denies GERD or dysphagia. She denies fever or chills. She denies diarrhea or constipation. She reports regular BM on day of admission and normally has 1 BM a day. She denies any bloody, black or tarry stools. She denies weight loss, fever or chills. She denies sick contacts. Moderate to large amount of inflammatory change associated with uncomplicated sigmoid diverticulitis. Labs show a hemoglobin of 13.2, WBC 10.6, platelet count 298, sodium 136, potassium 4.1, CO2 25, BUN of 10, creatinine 0.93, bili 0.6, AST 14, ALT 13, albumin 3. Colonoscopy: 2014 ([facility] [place]) sigmoid diverticulosis EGD:denies NSAIDS: denies Anticoagulants: none Past Med Surg Social Fam HX - Past Medical History Medical history: other Psychiatric history: no psych history - Past Surgical History Surgical History: - Social History Smoking Status: Never smoker Smokeless Tobacco Status: No Alcohol use: rarely Drug use: none - Family History Father Living Status: Still Living Hx Family GI Disorders: Yes (father has a hx of diverticulosis) Review of Systems: GI: as per [facility]: denies fever, or chills EYES: denies yellow discoloration ENT: denies pain with swallowing or difficulty swallowing CARDIO: denies chest pain, palpitations RESP: No Shortness of breath with exertion : denies change in color of urine NEURO: denies any weakness HEME: Denies any bruising MS: denies joint pain, joint swelling or back pain. DERM: denies rash or itching PSYCH: Denies history of anxiety or depression - Constitutional Vitals: Temp Pulse Resp BP Pulse Ox 98.4 F 81 16 138/86 98 08/29/17 04:46 08/29/17 04:46 08/29/17 04:46 08/29/17 04:46 08/29/17 04:46 Exam: CONSTITUTIONAL:~alert, no acute distress.~HEAD:~normocephalic.~EYES:~no jaundice.~NECK:~no obvious swelling.~HEART:~regular rate and rhythm, no murmurs. ~LUNGS:~bilateral good air entry.~ABDOMEN:~non distended, soft, tender lower quadrants, worse on the left, no masses palpable, no organomegaly.~RECTAL EXAM:~ Deferred.~EXTREMITIES:~no clubbing, cyanosis or edema.~SKIN:~no stigmata of chronic liver disease.~NEUROLOGIC:~no obvious focal defect.~~~~ Results - Labs CBC & Chem 7: 08/29/17 03:28 08/29/17 03:28 Labs: Last Result Calcium 9.4 mg/dL (8.6-10.8) 08/29/17 03:28 Entire Visit Hgb 13.2 g/dL (11.5-15.4) 08/29/17 03:28 Hct 39.8 % (35.3-44.9) 08/29/17 03:28 Total Bilirubin 0.6 mg/dL (0.2-1.2) 08/29/17 03:28 AST 14 Units/L (5-34) 08/29/17 03:28 ALT 13 Units/L (0-55) 08/29/17 03:28 Consult Discharge Plan - Plan Instructions: Diverticulitis (DC) Referrals: Brittany Mendez CNP [Primary Care Provider] - 09/01/17 2:00 pm Marya Ruiz MD [Partnered Physician] - (Web Request Entered. Thank you) Prescriptions: Ondansetron [Zofran] 4 mg PO Q8HR PRN #20 tablet PRN Reason: Nausea Ciprofloxacin HCl [Cipro] 500 mg PO BID #13 tablet metroNIDAZOLE [Metronidazole] 500 mg PO TID #19 tablet
== END 2017-08-29 11:05 | disposition home or self-care (01) | DRG 872 ==
LOC: EMEROO 07:16 → 3ANU 07:16
PROVIDERS: ADMIT Internal Medicine; ATTEND Internal Medicine